=== PATIENT | male | born 1965 | race Caucasian/White ===

== ENCOUNTER 2019-01-18 06:48 | Day surgery (SDC) | payer MEDICAID ==
[2019-01-18] MEDS ORDERED: PROPOFOL 60 ML (09:23)
[2019-01-18] MEDS ORDERED: PHENYLephrine (100 MCG/ML) 10ML SYG (09:23)
[2019-01-18] MEDS ORDERED: LIDOCAINE 2% (SDV) 5 ML INJ (09:23)
[2019-01-18] MEDS: ACETAMINOPHEN 650 MG SUPP PR (10:56)
== END 2019-01-18 11:06 | disposition home or self-care (01) ==
LOC: GIL 06:48
DX: Z12.11 Encounter for screening for malignant neoplasm of colon (principal); K22.70 Barrett's esophagus without dysplasia; K29.30 Chronic superficial gastritis without bleeding; D12.0 Benign neoplasm of cecum; D12.3 Benign neoplasm of transverse colon; E03.9 Hypothyroidism, unspecified
CPT/HCPCS: 43239; 88305; 88312; 88313